=== PATIENT | male | born 1970 | race Hispanic/Latino ===

== ENCOUNTER 2023-06-28 03:39 | Day surgery (SDC) | payer SELFPAY ==
[2023-06-28] MEDS ORDERED: Ondansetron PF 4 MG/2 ML Vial ONE ×2 (03:56→10:44)
[2023-06-28] MEDS ORDERED: Morphine 4 MG/ML VIAL ONE (03:56)
[2023-06-28 04:13] LABS: #Basophils 0.1 thou/uL (0.0-0.2); #Monocytes 0.7 thou/uL (0.11-0.59); #Neutrophils 5.1 thou/uL (1.40-6.50); %Basophils 0.9 % (0.0-1.0); %Eosinophils 9.9 % (0.0-10.0); %Lymphocytes 32.9 % (21.0-51.0); %Monocytes 6.5 % (0.0-10.0); %Neutrophils 49.4 % (42.0-75.0); Hematocrit 44.3 % (42.0-52.0); Hemoglobin 15.2 g/dL (14.0-18.0); Mean Corpuscular HGB CONC 34.3 g/dL (32.0-36.0); Mean Corpuscular Hemoglobin 31.7 pg (27.0-31.0); Mean Corpuscular Volume 92.3 fl (78.0-98.0); Mean Platelet Volume 9.8 fL (7.4-10.4); Platelet Count 285 10x3/uL (130-400); White Blood Cell (WBC) Count 10.3 10x3/uL (4.8-10.8)
[2023-06-28 04:40] LABS: ALT (SGPT) 14 U/L (8-55); AST (SGOT) 20 U/L (5-34); Albumin 4.7 g/dL (3.5-5.0); Alkaline Phosphatase 97 U/L (40-110); Anion Gap 16 mmol/L (10-20); BUN (Urea Nitrogen) 14 mg/dL (8.4-25.7); Bilirubin, Total 0.3 mg/dL (0.2-1.2); Calc. Creatinine Clearance 0 mL/min (70-130); Calcium 9.5 mg/dL (7.8-10.44); Carbon Dioxide 22 mmol/L (22-29); Chloride 106 mmol/L (98-107); Estimated GFR 105; Globulin 3.6 g/dL (2.4-3.5); Glucose 114 mg/dL (70-105); Lipase 24 U/L (8-78); Protein, Total 8.3 g/dL (6.0-8.3); Sodium 140 mmol/L (136-145)
[2023-06-28 04:42] LABS: Troponin I Less than 0.010 ng/mL (< 0.028)
[2023-06-28] MEDS ORDERED: LevoFLOXacin 750 mg/D5W 150 ml Premix Bag ONE (07:41)
[2023-06-28] MEDS ORDERED: Bupivacaine PF 0.5% 30 ML VIAL ONE (10:26)
[2023-06-28] MEDS ORDERED: EPINEPHrine 1 MG/ML AMP ONE (10:26)
[2023-06-28] MEDS ORDERED: fentaNYL PF 100 MCG/2 ML SYRINGE ONE (10:37)
[2023-06-28] MEDS ORDERED: HYDROmorphone 0.5 MG/0.5 ML SYRINGE ONE (10:37)
[2023-06-28] MEDS ORDERED: Lidocaine 1% PF 5 ML VIAL ONE (10:44)
[2023-06-28] MEDS ORDERED: Dexamethasone 20 MG/5 ML VIAL ONE (10:44)
[2023-06-28] MEDS ORDERED: NEOSTIGMINE 3 MG/3 ML SYR 3 MG/3 ML SYRINGE ONE (10:44)
[2023-06-28] MEDS ORDERED: PROPOFOL 200 MG/20 ML VIAL ONE (10:44)
[2023-06-28] MEDS ORDERED: Glycopyrrolate 0.2 MG/ML 5 ML SYRINGE ONE (10:44)
[2023-06-28] MEDS ORDERED: Rocuronium Bromide 10 MG/ML (10ML VIAL) ONE (10:44)
[2023-06-28] MEDS ORDERED: SUGAMMADEX SODIUM 200 MG/2 ML VIAL ONE (11:30)
[2023-06-28] MEDS ORDERED: fentaNYL 50 mcg/mL 1 mL Vial ONE ×3 (11:50→12:34)
[2023-06-28] MEDS ORDERED: Morphine 2 MG/ML VIAL ONE ×2 (13:27→13:35)
[2023-06-28] MEDS ORDERED: Ketorolac Tromethamine 30 MG/ML VIAL ONE (13:36)
== END 2023-06-28 18:38 | disposition home or self-care (01) ==
LOC: ERS 03:39 → SDC 09:11
PROVIDERS: ATTEND Specialist
PROC: 0FT44ZZ Resection of Gallbladder, Percutaneous Endoscopic Approach (ICD-10-PCS; principal; 2023-06-28)
DX: K80.12 Calculus of gallbladder with acute and chronic cholecystitis without obstruction (principal); K42.9 Umbilical hernia without obstruction or gangrene; F17.200 Nicotine dependence, unspecified, uncomplicated; F10.10 Alcohol abuse, uncomplicated; E66.9 Obesity, unspecified
CPT/HCPCS: 74176; 80053; 83690; 84484; 85025; 88304; 93005; 96365; 96375; C1889; J0171; J1100; J1170; J1885; J1956; J2270; J2272; J2405; J2704; J3010; S0020